=== PATIENT | female | born 1945 | race African-American/Black ===

== ENCOUNTER 2016-11-30 12:09 | Emergency (ER) | payer OTHER ==
[2016-11-30 12:47] VITALS: BP 143/64; PULSE 62; TEMP 97.8; BMI 34.3
--- NOTE | 2016-11-30 15:43 | PDOC ---
History of Present Illness - General Chief Complaint: Weakness Stated Complaint: WEAKNESS, EYE PAIN Time Seen by Provider: 11/30/16 15:20 - History of Present Illness Initial Comments: 11/30/16 15:36 71-year-old female with a past medical history of hypothyroidism, hypertension, and a PE She is on Xarelto at this time Patient states that she has had some left eye discomfort for about a week, associated with some blurred vision and occasional flashing lights She did have left cataract surgery in the past She denies any eye trauma She was at Dr Tracy and Dr Mao's office (ophthalmology) with her sister earlier today They both had appointments, but the slab puller did not accept the patient' s insurance, so she came to the emergency department, and canceled her appointment with Dr. Tracy Past History - Past Medical History Allergies/Adverse Reactions: Allergies Allergy/AdvReac Type Severity Reaction Status Date / Time No Known Allergies Allergy Verified 11/30/16 12:43 Home Medications: Ambulatory Orders Levothyroxine [Synthroid] 100 mcg PO DAILY 09/30/12 Valsartan [Diovan] 320 mg PO DAILY #0 tablet 10/04/12 Warfarin Na [Coumadin -] 5 mg PO DAILY@1800 #0 tablet 10/04/12 COPD: No (P.E) HTN: Yes Thyroid Disease: Yes - Psycho/Social/Smoking Cessation Hx Anxiety: No Suicidal Ideation: No Smoking Status: No Smoking History: Never smoked Have you smoked in the past 12 months: No Number of Cigarettes Smoked Daily: 0 Information on smoking cessation initiated: No Hx Alcohol Use: No Drug/Substance Use Hx: No Substance Use Type: None *Physical Exam - Vital Signs Last Vital Signs Temp Pulse Resp BP Pulse Ox 97.8 F 62 18 143/64 100 11/30/16 12:44 11/30/16 12:44 11/30/16 12:44 11/30/16 12:44 11/30/16 12:44 - Physical Exam Comments: 11/30/16 15:41 Physical exam Last Vital Signs Temp Pulse Resp BP Pulse Ox 97.8 F 62 18 143/64 100 11/30/16 12:44 11/30/16 12:44 11/30/16 12:44 11/30/16 12:44 11/30/16 12:44 Patient is alert and ambulatory and answering questions Head is normocephalic and atraumatic PERRL, EOMI, pt is status post left cataract surgery there is some opacification of the left lens, and I am unable to visualize the fundus The right eye is normal There is no facial asymmetry, and cranial nerves are all intact Neck is supple Medical Decision Making - Medical Decision Making 11/30/16 15:[address] Mao's office - unable to see patient now Call Dr. Segundo Talamantes-ophthalmology [id number] see patient in the office now - he accepts her insurance Patient sent directly to Dr. Talamantes's office now for full ophthalmology evaluation *DC/Admit/Observation/Transfer Diagnosis at time of Disposition: Eye abnormality - Referrals Referrals: STAFF,NOT ON [Primary Care Provider] - Segundo Talamantes MD [Staff Physician] - (To Dr. Talamantes's office now-ophthalmology) - Patient Instructions Additional Instructions: You are to go directly across the street now on go to Dr. Talamantes's office ophthalmology
== END 2016-11-30 15:56 | disposition home or self-care (01) ==
LOC: JER 12:09
DX: Q15.9 Congenital malformation of eye, unspecified (principal); E07.9 Disorder of thyroid, unspecified; I10 Essential (primary) hypertension; Z86.711 Personal history of pulmonary embolism; Z79.01 Long term (current) use of anticoagulants
CPT/HCPCS: 99283-25